=== PATIENT | female | born 1995 | race Caucasian/White ===

== ENCOUNTER 2019-06-18 07:23 | Emergency (ER) | payer OTHER ==
[~2019-06-18] VITALS: Ht 162.6 cm; Wt 43.6 kg
[2019-06-18] MEDS ORDERED: ONDANSETRON HCL INJ 2MG/ML 2ML 2 MG/ML VIAL IV STA ×2 (07:42→11:36)
[2019-06-18] MEDS ORDERED: SODIUM CHLORIDE 0.9% 1000ML 1,000 ML IV STA (07:44)
[2019-06-18] MEDS ORDERED: SODIUM CHLORIDE 0.9% 1000ML 1,000 ML ONE ×2 (08:09→13:59)
[2019-06-18] MEDS ORDERED: ONDANSETRON HCL INJ 2MG/ML 2ML 2 MG/ML VIAL ONE ×2 (08:09→12:13)
[2019-06-18] MEDS ORDERED: MORPHINE SULFATE 2 MG/ML SYR 1ML IV STA (08:19)
[2019-06-18] MEDS ORDERED: KETOROLAC TROMETHAMINE 30 MG/ML VIAL IV STA (08:40)
[2019-06-18] MEDS ORDERED: MORPHINE SULFATE INJ 4 MG/ML INJ 1ML ONE (08:43)
[2019-06-18] MEDS ORDERED: LORAZEPAM INJ 2 MG/ML VIAL IV ONE ×2 (08:45→14:30)
--- NOTE | 2019-06-18 08:45 | NUR ---
Pt refused the strep swab as she states that it will make her vomit.
--- NOTE | 2019-06-18 09:25 | NUR ---
pt sleeping in nad
[2019-06-18 11:35] VITALS: BP 137/81
[2019-06-18] MEDS ORDERED: IBUPROFEN 600 MG TAB PO STA (11:54)
[2019-06-18] MEDS ORDERED: IBUPROFEN 200 MG TAB ONE (12:14)
[2019-06-18] MEDS ORDERED: ACETAMINOPHEN 120 MG SUPP PR ONE (12:20)
[2019-06-18] MEDS ORDERED: ACETAMINOPHEN 650 MG SUPP PR ONE (12:30)
--- NOTE | 2019-06-18 13:16 | Diagnostic Imaging Report ---
EXAM: CT Abdomen and Pelvis WITH intravenous contrast INDICATION: Abdominal pain, vomiting COMPARISON: None. TECHNIQUE: Abdomen and pelvis were scanned utilizing a multidetector helical scanner from the lung base to the pubic symphysis after administration of IV contrast. Coronal and sagittal reformations were obtained. Routine protocol was performed. Scan was performed during portal venous phase. IV CONTRAST: 100mL of Isovue 370 ORAL CONTRAST: Water RADIATION DOSE: Total DLP: 198.2 mGy*cm Dose modulation, iterative reconstruction, and/or weight based adjustment of the mA/kV was utilized to reduce the radiation dose to as low as reasonably achievable. FINDINGS: LOWER THORAX: Normal. HEPATOBILIARY: No focal hepatic lesions. The gallbladder appears unremarkable. SPLEEN: No splenomegaly. PANCREAS: No focal masses or ductal dilatation. ADRENALS: No adrenal nodules. KIDNEYS/URETERS: No hydronephrosis, stones, or solid mass lesions. PELVIC ORGANS/BLADDER: 5.8 x 5.5 cm left adnexal cystic structure. PERITONEUM / RETROPERITONEUM: No free air or fluid. LYMPH NODES: No lymphadenopathy. VESSELS: Unremarkable. GI TRACT: No abnormal bowel wall thickening. No bowel obstruction. Normal appendix. BONES AND SOFT TISSUES: No acute osseous injury. No suspicious lytic or blastic lesions. IMPRESSION: 5.8 x 5.5 cm left adnexal cyst is almost certainly a benign finding however may increase risk of ovarian torsion. Further recommendation with pelvic ultrasound is recommended. Signed by: Leon Lovett MD on 06/18/2019 1:13 PM
--- NOTE | 2019-06-18 13:38 | NUR ---
Ultrasound called in for procedure and exam
[2019-06-18] MEDS ORDERED: LORAZEPAM INJ 2 MG/ML VIAL ONE (14:52)
--- NOTE | 2019-06-18 15:04 | Diagnostic Imaging Report ---
Exam: Pelvic ultrasound. History: Adnexal cyst, abdominal pain Comparison: CT abdomen and pelvis of earlier the same day Findings: Transabdominal sonographic evaluation of the pelvis. The patient declined transvaginal sonographic evaluation. The uterus is anteverted in position, measuring 6.2 x 2.8 x 4.0cm. Endometrial stripe thickness is 9 mm. The right ovary is not well visualized due to overlying bowel gas. The left ovary measures 5.6 x 5.7 x 4.5 cm and contains a 5.5 cm simple appearing cyst without internal septations or internal vascularity. Vascular flow in the ovary is not well visualized due to substantial overlying bowel gas. Impression: Left ovarian 5.5 cm simple appearing cyst without internal septations or internal vascularity. Vascular flow of the ovary is not well-visualized due to overlying bowel gas. This is almost certainly a benign finding, however follow-up ultrasound in one year is recommended to assess for stability. Signed by: Leon Lovett MD on 06/18/2019 3:01 PM
== END 2019-06-18 15:10 | disposition home or self-care (01) ==
LOC: FSED 07:23
DX: R10.13 Epigastric pain (principal); R11.2 Nausea with vomiting, unspecified; E86.0 Dehydration; N83.202 Unspecified ovarian cyst, left side
CPT/HCPCS: 74176; 76856; 80053; 80076; 81025; 85025; 87400; 96374; 96375; 99284; J1885; J2060; J2270 ×2; J2405; J7030